=== PATIENT | male | born 1995 | race Caucasian/White ===

== ENCOUNTER 2022-06-29 11:44 | Emergency (ER) | payer OTHER ==
[2022-06-29 12:21] VITALS: RESP 16
[2022-06-29] MEDS ORDERED: IBUPROFEN 600 MG TAB PO STA (12:39)
--- NOTE | 2022-06-29 12:51 | ED ---
General Adult HPI - General Chief complaint: Wound/Laceration Stated complaint: Finger Injury Time Seen by Provider: 06/29/22 12:23 Source: patient, RN notes reviewed Mode of arrival: ambulatory Limitations: no limitations - History of Present Illness Initial comments: 26-year-old male presents to the emergency department with chief complaint of right second digit pain and bleeding. 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 He cut his finger on an industrial tape dispenser. He is having pain in his right second digit distally. He is able to move his fingers, denies numbness, tingling. He states that he does not know his last tetanus shot but he went to [facility] 1 month ago for sutures and they said he is up-to-date on his tetanus. Review of Systems ROS Statement: Those systems with pertinent positive or pertinent negative responses have been documented in the HPI. ROS Other: All systems not noted in ROS Statement are negative. Past Medical History Past Medical History: No Reported History History of Any Multi-Drug Resistant Organisms: None Reported Past Surgical History: No Surgical Hx Reported Past Psychological History: No Psychological Hx Reported Smoking Status: Vaper Past Alcohol Use History: None Reported Past Drug Use History: Marijuana General Exam Limitations: no limitations General appearance: alert, in no apparent distress Head exam: Present: atraumatic, normocephalic, normal inspection Eye exam: Present: normal appearance Extremities exam: Present: full ROM (decreased ROM to right 2nd digit ), tenderness (tenderness to distal phalanx of 2nd digit of right hand ), normal capillary refill, other (radial pulses 2+, Normal capillary refill ). Absent: normal inspection (abrasion to right 2nd digit ), pedal edema, joint swelling, calf tenderness Neurological exam: Present: alert, oriented X3 Psychiatric exam: Present: normal affect, normal mood Skin exam: Present: warm, dry, normal color, abrasion (right 2nd digit ). Absent: rash Course Vital Signs 06/29/22 06/29/22 12:18 13:58 Temperature 97.6 F 97.9 F Pulse Rate 74 70 Respiratory 16 16 Rate Blood Pressure 122/76 127/71 O2 Sat by Pulse 99 99 Oximetry Medical Decision Making - Medical Decision Making Was pt. sent in by a medical professional or institution (, PA, GRADING SUPERVISOR, urgent care, hospital, or senior living...) When possible be specific @ -[No] Did you speak to anyone other than the patient for history (EMS, parent, family, police, friend...)? What history was obtained from this source @ -[No] Did you review nursing and triage notes (agree or disagree)? Why? @ -[I reviewed and agree with nursing and triage notes] Were old charts reviewed (outside hosp., previous admission, EMS record, old EKG, old radiological studies, urgent care reports/EKG's, senior living records)? Report findings @ -[No old charts were reviewed] Differential Diagnosis (chest pain, altered mental status, abdominal pain women, abdominal pain men, vaginal bleeding, weakness, fever, dyspnea, syncope, headache, dizziness, GI bleed, back pain, seizure, CVA, palpatations, mental health, musculoskeletal)? @ -[Differential Musculoskeletal Muscular strain, contusion, ligament sprain, fracture, arthritis, septic arthritis, bursitis, cellulitis, muscle spasm, nerve compression, DVT, arterial occlusion, herpes zoster, electrolyte abnormality, tumor.... This is not meant to be in all inclusive liste] EKG interpreted by me (3pts min.). @ -[None] X-rays interpreted by me (1pt min.). @ -[X-ray second digit obtained which show no acute fracture] CT interpreted by me (1pt min.). @ -[None done] U/S interpreted by me (1pt. min.). @ -[None done] What testing was considered but not performed or refused? (CT, X-rays, U/S, labs)? Why? @ -[None] What meds were considered but not given or refused? Why? @ -[None] Did you discuss the management of the patient with other professionals (professionals i.e. , PA, GRADING SUPERVISOR, lab, RT, psych nurse, social media job titles, health screener, teacher, accounting officer, lining caser)? Give summary @ -[No] Was smoking cessation discussed for >3mins.? @ -[No] Was critical care preformed (if so, how long)? @ -[No] Were there social determinants of health that impacted care today? How? (Homelessness, low income, unemployed, alcoholism, drug addiction, transportation, low edu. Level, literacy, decrease access to med. care, long-term, rehab)? @ -[No] Was there de-escalation of care discussed even if they declined (Discuss DNR or withdrawal of care, Hospice)? DNR status @ -[No] What co-morbidities impacted this encounter? (DM, HTN, Smoking, COPD, CAD, Cancer, CVA, ARF, Chemo, Hep., AIDS, mental health diagnosis, sleep apnea, morbid obesity)? @ -[None] Was patient admitted / discharged? Hospital course, mention meds given and route, prescriptions, significant lab abnormalities, going to OR and other pertinent info. @ -[Discharged. Patient presented to emergency department after his finger was tested between a box and a tape dispenser causing an abrasion of his right seco nd digit. X-ray right second digit was obtained and showed no acute fracture. Adacel is aDministered. No suturing was necessary. Wound was dressed. Wound care discussed. Patient discharged in stable condition] Undiagnosed new problem with uncertain prognosis? @ -[No] Drug Therapy requiring intensive monitoring for toxicity (Heparin, Nitro, Insulin, Cardizem)? @ -[No] Were any procedures done? @ -[No] Diagnosis/symptom? @ -[Right second digit abrasion] Acute, or Chronic, on Chronic? @ -Acute Uncomplicated (without systemic symptoms) or Complicated (systemic symptoms)? @ -[UNComplicated] Side effects of treatment? @ -[No] Exacerbation, Progression, or Severe Exacerbation? @ -[No] Poses a threat to life or bodily function? How? (Chest pain, [place], [place], pneumonia, PE, COPD, DKA, ARF, appy, cholecystitis, CVA, Diverticulitis, Homicidal, Suicidal, threat to staff... and all critical care pts) @ -[No] Disposition Clinical Impression: Abrasion of finger of right hand Disposition: HOME SELF-CARE Condition: Stable Instructions (If sedation given, give patient instructions): Abrasion (ED) Additional Instructions: Please return to the Emergency Department if symptoms worsen or any other concerns. Is patient prescribed a controlled substance at d/c from ED?: No Referrals: None,Stated [Primary Care Provider] - 1-2 days Time of Disposition: 13:52
[2022-06-29] MEDS ORDERED: DIPH,PERTUS(ACELL)TETVAC-LF 0.5 ML VIAL IM ONE (12:59)
--- NOTE | 2022-06-29 13:01 | XR ---
EXAMINATION TYPE: XR finger RT DATE OF EXAM: 06/29/2022 12:56 PM INDICATION: Patient age:Male; 26 years old; Reason for study: pain right 2nd digit; COMPARISON: None TECHNIQUE: Frontal, lateral and oblique views of the right finger were obtained. FINDINGS: Normal alignment of the visualized joints. No acute osseous pathology is identified. No e vidence of soft tissue swelling. No radiopaque foreign body. IMPRESSION: No acute osseous pathology.
[2022-06-29 13:59] VITALS: BP 127/71; PULSE 70; TEMP 97.9
== END 2022-06-29 13:59 | disposition home or self-care (01) ==
LOC: EC 11:44
DX: S60.410A Abrasion of right index finger, initial encounter (principal); F17.290 Nicotine dependence, other tobacco product, uncomplicated; F12.90 Cannabis use, unspecified, uncomplicated; Z23 Encounter for immunization; W23.0XXA Caught, crushed, jammed, or pinched between moving objects, initial encounter; Y99.0 Civilian activity done for income or pay
CPT/HCPCS: 90471; 90715; 99283